=== PATIENT | female | born 1935 | race Caucasian/White ===

== ENCOUNTER → 2016-05-28 | Outpatient (CLI) | payer MEDICARE, OTHER, MEDICAID ==
[2016-05-28 16:08] LABS: BASOPHILS % (AUTO) 1 % (0-2); EOSINOPHILS % (AUTO) 0 % (0-4); LYMPHOCYTES # (AUTO) 0.5 X10^3; MEAN CORPUSCULAR HEMOGLOBIN 30.7 PG (26.0-34.0); MEAN CORPUSCULAR HGB CONC 34.6 g/dL (31.0-37.0); MEAN CORPUSCULAR VOLUME 89 FL (80-100); MEAN PLATELET VOLUME 10.2 FL (6.0-9.5); MONOCYTES # (AUTO) 0.7 X10^3; MONOCYTES % (AUTO) 12 % (3-11); NEUTROPHILS # (AUTO) 4.8 X10^3; NEUTROPHILS % (AUTO) 79 % (51-67); PLATELET COUNT 161 10^3uL (150-450); WHITE BLOOD COUNT 6.03 10^3uL (4.0-11.0)
[2016-05-28 16:38] LABS: ALBUMIN 4.7 g/dL (3.4-5.0); ANION GAP 20.7 MEQ/L (3-15); TOTAL PROTEIN 8.1 g/dL (6.4-8.5)
[2016-05-28 17:11] LABS: ERYTHROCYTE SEDIMENTATION RT* 17 mm/hr (0-23)
== END ==
LOC: LAB 15:36
PROVIDERS: ATTEND Family Medicine
DX: R05 Cough (principal); M25.552 Pain in left hip; M25.551 Pain in right hip; M62.89 Other specified disorders of muscle; R53.82 Chronic fatigue, unspecified; Z96.641 Presence of right artificial hip joint
CPT/HCPCS: 36415; 71020; 73502; 80053; 82550; 84443; 85025; 85652

== ENCOUNTER → 2016-05-29 | Outpatient (REF) | payer MEDICARE, OTHER, MEDICAID ==
[2016-05-29 13:17] LABS: INFLUENZA VIRUS TYPE A ANTIBOD Positive (NEGATIVE); INFLUENZA VIRUS TYPE B ANTIBOD Negative (NEGATIVE)
== END ==
LOC: LAB 11:51
PROVIDERS: ATTEND Family Medicine
DX: R05 Cough (principal); R50.9 Fever, unspecified
CPT/HCPCS: 87502